=== PATIENT | female | born 1985 | race Two or more races ===

== ENCOUNTER 2021-05-20 19:37 | Emergency (ER) | payer SELFPAY ==
[~2021-05-20] VITALS: Ht 152.4 cm; Wt 60.0 kg
--- NOTE | 2021-05-20 20:47 | PHYS DOC ---
Past Medical History Past Surgical History: General Adult EDM: Chief Complaint: ABDOMINAL PAIN HPI: HPI: Patient is a 36 year old female who presents with epigastric and right upper quadrant pain. Is been constant since yesterday afternoon. Associated with anorexia, nausea, vomiting. Has not eaten anything since yesterday. Pain radiates towards the back. Associated with chills. No measured fevers. Has also had nonbloody diarrhea today. Denies dysuria, urgency, frequency. Does not think that she could be . Only previous abdominal surgery is a . Does not drink alcohol. No history of gallstones. Does not take any med ications regularly. Review of Systems: Review of Systems: Constitutional: Denies fever. Reports chills Eyes: Denies change in visual acuity. [] HENT: Denies nasal congestion or sore throat. [] Respiratory: Denies cough or shortness of breath. [] Cardiovascular: Denies chest pain or edema. [] GI: Reports abdominal pain, nausea, vomiting, diarrhea. : Denies dysuria, urgency, frequency [] Musculoskeletal: Denies back pain or joint pain. [] Integument: Denies rash. [] Neurologic: Denies headache, focal weakness or sensory changes. [] Endocrine: Denies polyuria or polydipsia. [] Lymphatic: Denies swollen glands. [] Psychiatric: Denies depression or anxiety. [] Heart Score: C/O Chest Pain: No Physical Exam: PE: Constitutional: Patient appears uncomfortable, clutching upper abdomen. HENT: Normocephalic, atraumatic,l. [] Eyes: conjunctiva normal, no discharge. [] Neck: Normal range of motion, no tenderness, supple, no stridor. [] Cardiovascular:Heart rate regular rhythm, no murmur [] Lungs & Thorax: Bilateral breath sounds clear to auscultation [] Abdomen diffuse tenderness to palpation, most prominent in epigastrium and right upper quadrant. Soft, no rigidity, no rebound. Does have involuntary guarding. Skin: Warm, dry, no erythema, no rash. [] Back: No tenderness, no CVA tenderness. [] Extremities: No tenderness, no cyanosis, no clubbing, ROM intact, no edema. [] Neurologic: Alert and oriented X 3, normal motor function, normal sensory function, no focal deficits noted. [] Psychologic: Affect normal, judgement normal, mood normal. [] Current Patient Data: Vital Signs: Vital Signs Date Time Temp Pulse Resp B/P (MAP) Pulse Ox O2 Delivery O2 Flow Rate FiO2 05/20/21 20:15 99.0 64 20 153/87 (109) 100 Room Air 99.0 EKG: EKG: [] Radiology/Procedures: Radiology/Procedures: [] Impression: [facility] [address] [place] [address] IMAGING REPORT Signed PATIENT: SERENITY COLLIEROUNT: [id number] : 1985 LOCATION: ER AGE: 36 SEX: F EXAM STATUS: REG ER ORD. PHYSICIAN: CARLA GEORGE MD REASON: epigastric and RUQ pain PROCEDURE: CT ABD PELV W/ IV CONTRST ONLY EXAMINATION: CT ABDOMEN+PELVIS W CLINICAL HISTORY: Epigastric and right upper quadrant pain TECHNIQUE: CT of the abdomen and pelvis was performed using standard technique, scanning from just above the dome of the diaphragm to the symphysis pubis following administration of intravenous contrast. CT Dose Reduction Employed: One or more of the following individualized dose reduction techniques were utilized for this examination: 1. Automated exposure control 2. Adjustment of the mA and/or kV according to patient size 3. Use of iterative reconstruction technique. COMPARISON: None FINDINGS: Minimal basilar subsegmental atelectasis. Liver, gallbladder, pancreas, spleen, adrenal glands, and kidneys unremarkable. Nondiagnostic evaluation of the nondistended urinary bladder. Uterus and ovaries within normal limits for patient's age. Mildly fluid distended terminal ileum and fluid-filled ascending colon, nonspecific but could be related to very mild enterocolitis. Remainder of the small bowel and colon unremarkable. Appendix within normal limits. No abdominal aortic or iliac artery aneurysm. No evidence of acute osseous abnormality. IMPRESSION: Mildly fluid distended terminal ileum and fluid-filled ascending colon, nonspecific but could be related to very mild enterocolitis. Is otherwise no evidence of acute abdominopelvic abnormality. Electronically signed by: Niall Clifton DO (05/20/2021 10:47 PM) [facility] DICTATED and SIGNED BY: NIALL CLIFTON DO DATE: 05/20/21 [id number] 0 Course & Med Decision Making: Course & Med Decision Making Pertinent Labs and Imaging studies reviewed. (See chart for details) Patient a 36-year-old female with previous history of section who presents with right upper quadrant epigastric pain radiating to the back since yesterday. DDx pancreatitis, cholelithiasis/biliary colic, cholecystitis, choledocholithiasis. Less likely PUD/gastritis. We will obtain labs including LFTs, lipase, and a CT abdomen/pelvis for initial work-up. 843 CT shows a mild colitis of the hepatic flexure Labs show evidence of urinary tract infection. Urine sent for culture. Given ceftriaxone in the ED. Mild leukocytosis on labs, but vital signs remained stable. Will be discharged on cefdinir. Return precautions discussed. [id number] [employer] Disclaimer: Argen[employer] Disclaimer: This electronic medical record was generated, in whole or in part, using a voice recognition dictation system. Departure Departure Impression: Primary Impression: UTI (urinary tract infection) Additional Impression: Colitis Disposition: 01 HOME / SELF CARE / HOMELESS Condition: STABLE Patient Instructions: Colitis, Urinary Tract Infection Scripts Hydrocodone Bit/Acetaminophen (HYDROCODONE-APAP 5-325 ) 1 Tab Tablet 1 TAB PO PRN Q6HRS PRN for PAIN, #12 TAB 0 Refills Prov: CARLA GEORGE MD 05/21/21 Cefdinir (CEFDINIR) 300 Mg Capsule 300 MG PO BID for 7 Days, #14 CAP 0 Refills Prov: CARLA GEORGE MD 05/21/21 CARLA GEORGE MD May 20, 2021 20:47
[2021-05-20 21:00] LABS: BILIRUBIN,URINE SMALL (NEG); CLARITY,URINE CLOUDY; COLOR,URINE YELLOW; NITRITE,URINE NEGATIVE (NEG); PROTEIN,URINE NEGATIVE (NEG-TRACE); UROBILINOGEN,URINE 0.2 mg/dL (0.2 mg/dL)
[2021-05-20] MEDS ORDERED: IV NORMAL SALINE 1000ML BAG 1,000 ML IV ONE (21:00)
[2021-05-20] MEDS ORDERED: ONDANSETRON PF 4 MG/2 ML VIAL. IVP ONE (21:00)
[2021-05-20] MEDS ORDERED: MORPHINE SULFATE 10 MG/ML VIAL. IVP ONE (21:00)
[2021-05-20 21:03] LABS: U PREG PATIENT NEGATIVE (NEG)
[2021-05-20 21:05] LABS: BACTERIA,URINE MANY /HPF (0-FEW)
[2021-05-20 21:06] LABS: RBC,URINE OCC /HPF (0-2)
[2021-05-20 21:07] LABS: WBC,URINE 20-40 /HPF (0-4)
[2021-05-20 21:22] LABS: BASO # 0.1 x10^3/uL (0.0-0.2); BASO % 1 % (0-3); EOS # 0.1 x10^3/uL (0.0-0.7); EOS % 1 % (0-3); HEMATOCRIT 44.1 % (36.0-47.0); HEMOGLOBIN 15.1 g/dL (12.0-15.5); LYMPH # 2.1 x10^3/uL (1.0-4.8); LYMPH % 17 % (24-48); MEAN CORPUSCULAR HEMOGLOBIN 30 pg (25-35); MEAN CORPUSCULAR HGB CONC 34 g/dL (31-37); MEAN CORPUSCULAR VOLUME 88 fL (79-100); MONO # 0.8 x10^3/uL (0.0-1.1); MONO % 6 % (0-9); NEUT # 9.7 x10^3/uL (1.8-7.7); NEUT % 76 % (31-73); PLATELET COUNT 394 x10^3/uL (140-400); RED CELL DISTRIBUTION WIDTH 12.4 % (11.5-14.5); WHITE BLOOD COUNT 12.8 x10^3/uL (4.0-11.0)
[2021-05-20 21:32] LABS: CALCIUM 9.3 mg/dL (8.5-10.1); CREATININE 0.6 mg/dL (0.6-1.0); GFR 114.4; POTASSIUM 3.6 mmol/L (3.5-5.1)
[2021-05-20 21:38] LABS: ALBUMIN 4.2 g/dL (3.4-5.0); ALBUMIN/GLOBULIN RATIO 1.1 (1.0-1.7); TOTAL BILIRUBIN 0.4 mg/dL (0.2-1.0); TOTAL PROTEIN 8.2 g/dL (6.4-8.2)
[2021-05-20] MEDS ORDERED: CONTRAST GIVEN. MC PRN (22:00)
[2021-05-20] MEDS ORDERED: cefTRIAXone IV Push 1 GM VIAL. IVP ONE (22:30)
[2021-05-20] MEDS ORDERED: IOHEXOL 300 MG/ML 100ML VIAL. IV ONE (22:30)
--- NOTE | 2021-05-20 22:49 | RAD ---
EXAMINATION: CT ABDOMEN+PELVIS W CLINICAL HISTORY: Epigastric and right upper quadrant pain TECHNIQUE: CT of the abdomen and pelvis was performed using standard technique, scanning from just ab ove the dome of the diaphragm to the symphysis pubis following administration of intravenous contrast . CT Dose Reduction Employed: One or more of the following individualized dose reduction techniques wer e utilized for this examination: 1. Automated exposure control 2. Adjustment of the mA and/or kV ac cording to patient size 3. Use of iterative reconstruction technique. COMPARISON: None FINDINGS: Minimal basilar subsegmental atelectasis. Liver, gallbladder, pancreas, spleen, adrenal glands, and kidneys unremarkable. Nondiagnostic evaluation of the nondistended urinary bladder. Uterus and ovaries within normal limits for patient's age. Mildly fluid distended terminal ileum and fluid-filled ascending colon, nonspecific but could be rela mynor to very mild enterocolitis. Remainder of the small bowel and colon unremarkable. Appendix within normal limits. No abdominal aortic or iliac artery aneurysm. No evidence of acute osseous abnormality. IMPRESSION: Mildly fluid distended terminal ileum and fluid-filled ascending colon, nonspecific but could be rela mynor to very mild enterocolitis. Is otherwise no evidence of acute abdominopelvic abnormality. Electronically signed by: Niall Wang DO (05/20/2021 10:47 PM) [facility]
[2021-05-21 01:00] VITALS: BP 133/87
[2021-05-21] MEDS ORDERED: CEFD300C PO (01:06)
[2021-05-21] MEDS ORDERED: HYDR-2761 PO (01:06)
== END 2021-05-21 01:30 | disposition home or self-care (01) ==
LOC: ER 19:37
DX: N39.0 Urinary tract infection, site not specified (principal); K52.9 Noninfective gastroenteritis and colitis, unspecified
CPT/HCPCS: 36415; 74177; 80053; 81001; 81025; 83690; 85025; 87086; 96361; 96374; 96375; 99285; J0696; J2270; J2405; J7030; Q9967